=== PATIENT | female | born 1990 ===

== ENCOUNTER 2018-08-23 14:13 | Emergency (ER) | payer BC ==
[2018-08-23 14:20] VITALS: BP 136/86; PULSE 90; RESP 18; TEMP 98.2; O2SAT 99
--- NOTE | 2018-08-23 15:39 | ED PDOC ---
Lower Extremity Pain/Injury Time Seen by Provider: 08/23/18 14:52 Chief Complaint (Nursing): Lower Extremity Problem/Injury Chief Complaint (Provider): Lower Extremity Problem/Injury History Per: Patient History/Exam Limitations: no limitations Onset/Duration Of Symptoms: Mins Current Symptoms Are (Timing): Still Present Additional Complaint(s): 28 y/o female at 38 weeks brought in by EMS for evaluation of right ankle pain s/p fall, onset just prior to arrival. Patient states after she got a massage, she accidentally missed a step as she was leaving, twisting her ankle causing her to fall on her side. Patient reports she couldn't get back up and thus called EMS. Patient notes she did not hit her abdomen and that the baby is moving well. Of note, patient reports of being complaint with vitamins. Otherwise, patient notes of having a normal with no complications. Denies head injury, abdominal pain, vaginal bleeding, numbness and tingling. PMD: Dr. Willis PRODUCTION CONTROL ANALYST: Hal Weiss Past Medical History Reviewed: Historical Data, Nursing Documentation, Vital Signs Vital Signs: Last Vital Signs Temp 98.2 F 08/23/18 14:16 Pulse 90 08/23/18 14:16 Resp 18 08/23/18 14:16 BP 136/86 08/23/18 14:16 Pulse Ox 99 08/23/18 14:16 - Medical History PMH: No Chronic Diseases - Surgical History Surgical History: No Surg Hx - Family History Family History: States: No Known Family Hx - Social History Current smoker - smoking cessation education provided: No - Home Medications Home Medications: Ambulatory Orders Medication Instructions Recorded Acetaminophen [8 Hour Pain Relief] 650 mg PO Q8 PRN #20 tablet.er 08/23/18 Wheelchair 1 each MC DAILY #1 each 08/23/18 - Allergies Allergies/Adverse Reactions: Allergies Allergy/AdvReac Type Severity Reaction Status Date / Time No Known Allergies Allergy Verified 08/23/18 14:16 Review of Systems ROS Statement: Except As Marked, All Systems Reviewed And Found Negative Gastrointestinal: Negative for: Abdominal Pain Musculoskeletal: Positive for: Foot Pain (RIGHT ANKLE) Neurological: Negative for: Numbness (OR TINGLING) Physical Exam - Reviewed Nursing Documentation Reviewed: Yes Vital Signs Reviewed: Yes - Physical Exam Comments: GENERAL APPEARANCE: Patient is awake, alert, oriented x 3, well and in no obvious discomfort. HEAD: Atraumatic SKIN: Warm, dry; (-) cyanosis. EYES: (-) conjunctival pallor, (-) scleral icterus. ENMT: Mucous membranes moist. NECK: (-) tenderness, (-) stiffness, (-) lymphadenopathy. CHEST AND RESPIRATORY: (-) rales, (-) rhonchi, (-) wheezes; breath sounds equal bilaterally. HEART AND CARDIOVASCULAR: (-) irregularity; (-) murmur, (-) gallop. ABDOMEN AND GI: Gravid.; (-) reproducible tenderness. (-) ecchymosis (-) guard ing, (-) rebound, (-) palpable masses, (-) CVA tenderness. EXTREMITIES: (-) obvious deformity, (-) edema, (+) normal distal pulses. Cap refill < 2 seconds. (+) tenderness and swelling to the medial malleolous. (+) decreased ROM secondary to pain at the ankle, NVI NEURO AND PSYCH: Mental status as above; (-) focal findings. - ECG O2 Sat by Pulse Oximetry: 99 (RA) Pulse Ox Interpretation: Normal Medical Decision Making Medical Decision Making: Time: 1451 Impression: Right Ankle Pain Plan: -- Tylenol 650 mg PO -- Ankle Right 3 Views XR -- Patient to go to L&D after evaluation in the ER. Time: 1643 -- Patient with acute bimalleolar fracture, seen by podiatry who placed patient in a sugar tong and posterior splint. Patient instructed to follow-up at podiatry clinic on September 02. Pt to be non weight bearing with crutches or wheel chair if needed. Patient will need a surgery but will likely wait until after patient goes into labor, pt is stable for dc at this time Pt to go to L&D for further evaluation Discussed results, diagnosis, treatment, return precautions and f/u with pt who is understanding, in agreement and stable for dc Scribe Attestation: Documented by Silvestre Naranjo, acting as a scribe forAlexis Cindy Edwards PA-C. Provider Scribe Attestation: All medical record entries made by the Scribe were at my direction and personally dictated by me. I have reviewed the chart and agree that the record accurately reflects my personal performance of the history, physical exam, medical decision making, and the department course for this patient. I have also personally directed, reviewed, and agree with the discharge instructions and disposition. Disposition - Clinical Impression Clinical Impression: Fracture of tibia and fibula, Bimalleolar ankle fracture - Patient ED Disposition Is Patient to be Admitted: No Counseled Patient/Family Regarding: Studies Performed, Diagnosis, Need For Followup, Rx Given - Disposition Referrals: Podiatry Clinic [Outside] Hal Weiss MD [Staff Provider] - Reji Garcia DPM [Staff Provider] - Disposition: Routine/Home Disposition Time: 16:44 Condition: STABLE Additional Instructions: Return to ED for new or worsening symptoms, fever >100.4, numbness or tingling, changes in skin color, severe pain. Follow up with your OBGYN [facility]. FOllow up with oil well service unit operator as planned on September 02. Keep splint on until follow up, keep it clean and dry. Use crutches to be non weight bearing. Rest, ice and elevate. Take Tylenol as needed for pain. It is safe in Prescriptions: Acetaminophen [8 Hour Pain Relief] 650 mg PO Q8 PRN #20 tablet.er PRN Reason: Pain, Moderate (4-7) Wheelchair 1 each MC DAILY #1 each Instructions: Ankle Fracture (DC) Forms: [employer] (Palestinian) Print Language: LATVIAN - POA Present On Arrival: None
--- NOTE | 2018-08-23 16:32 | RAD ---
Date of service: 08/23/2018 PROCEDURE: Right Ankle Radiographs. HISTORY: Recent trauma COMPARISON: None available. TECHNIQUE: 3 views obtained. FINDINGS: BONES: Oblique fracture distal right fibula at and above the ankle mortise. Major fracture fragments are anatomically aligned. Lateral malleolar fracture common nondisplaced. Incompletely visible posterior malleolar fracture. JOINTS: Normal. No osteoarthritis. Ankle mortise maintained. Talar dome intact SOFT TISSUES: Soft tissue swelling attests to the acuity of the fracture. OTHER FINDINGS: None. IMPRESSION: Acute trimalleolar fracture.
--- NOTE | 2018-08-23 16:54 | CP.PCM.CON ---
History of Present Illness - History of Present Illness History of Present Illness: Podiatry Consult Note: 28 year old female patient, with no PMHx, 38 weeks , seen and evaluated in the emergency department for right ankle pain. Patient states that she was walking down steps when she tripped and rolled her ankle. She was immediately unable to weightbear to her right lower extremity. She is accompanied by her mom at today's visit. Denies nausea/vomiting/fever/shortness of breath/numbness or tingling to her right lower extremity. Patient denies any head trauma. PMHx: denies PSHx: denies ALL: NKDA Past Patient History - Past Social History Smoking Status: Never Smoked - PSYCHIATRIC Hx Substance Use: No Meds Home Medications: Home Medication List Medication Instructions Recorded Confirmed Type Acetaminophen [8 Hour Pain Relief] 650 mg PO Q8 PRN #20 tablet.er 08/23/18 Rx Allergies/Adverse Reactions: Allergies Allergy/AdvReac Type Severity Reaction Status Date / Time No Known Allergies Allergy Verified 08/23/18 14:16 Physical Exam - Constitutional Appears: Non-toxic, No Acute Distress - Head Exam Head Exam: ATRAUMATIC, NORMOCEPHALIC - Extremities Exam Additional comments: Vascular: DP/PT 2/4, CFT < 3 seconds, TG warm to warm, + 2 edema to ankle circumfrentially Ortho: Pain with palpation of medial and lateral malleoli, pain with passive and active range of motion of ankle joint, achilles tendon intact Neuro: Gross and protective sensation intact Derm: No open lesions, no erythema, no clinical signs of infections - Neurological Exam Neurological exam: Alert, Oriented x3 - Psychiatric Exam Psychiatric exam: Normal Affect, Normal Mood Results - Vital Signs Recent Vital Signs: Last Vital Signs Temp 98.2 F 08/23/18 14:16 Pulse 90 08/23/18 14:16 Resp 18 08/23/18 14:16 BP 136/86 08/23/18 14:16 Pulse Ox 99 08/23/18 16:46 Assessment & Plan - Assessment and Plan (Free Text) Assessment: 28 year old female patient, seen and evaluated in the emergency department for right bimalleolar fracture Plan: Patient seen and evaluated with all questions and concerns addressed Discussed patient case in length with Dr. Garcia Right ankle x-ray; acute bimalleolar fracture Discussed patient's case in detail with patient's BOILER INSTALLER practice, Dr. Weiss's office Patient stable for discharge from podiatry standpoint Patient placed in right posterior splint, patient to leave splint clean/dry/intact Advised to remain non-weightbearing with the use of a wheelchair/crutches pend ing patient's comfort level and stability Discussed with BOILER INSTALLER team risk for DVT with immobilization Discussed with patient at length surgical intervention, including risks, benefits, and complications Discussed with patient risks/benefits of delaying surgical intervention Discussed importance of icing and elevating right lower extremity Patient will need surgical intervention, within approximately 3 weeks or before osseous healing Patient advised to follow up in 1-2 weeks in the Podiatry Clinic for surgical planning of bimalleolar fracture Pain management per patients BOILER INSTALLER recommendations Thank you for the consult - Date & Time Date: 08/23/18 Time: 16:54
== END 2018-08-23 16:45 | disposition home or self-care (01) ==
LOC: H.ER 14:13 → H.EROB2 14:13 → H.L&D 17:04
DX: O26.93 Pregnancy related conditions, unspecified, third trimester (principal); S82.841A Displaced bimalleolar fracture of right lower leg, initial encounter for closed fracture; Z3A.38 38 weeks gestation of pregnancy; W10.8XXA Fall (on) (from) other stairs and steps, initial encounter